=== PATIENT | female | born 1985 | race African-American/Black ===

== ENCOUNTER 2016-07-18 07:13 | Emergency (ER) | payer SELFPAY ==
[2016-07-18 08:38] LABS: ABSOLUTE EOSINOPHILS # (AUTO) 0.1 10^3/uL (0.0-0.6); ABSOLUTE LYMPHOCYTES (AUTO) 1.4 10^3/uL (0.5-4.7); ABSOLUTE MONOCYTES (AUTO) 0.5 10^3/uL (0.1-1.4); ABSOLUTE NEUT (AUTO) 3.1 10^3/uL (1.7-8.2); BASOPHILS % (AUTO) 0.9 % (0-2); EOSINOPHILS % (AUTO) 2.5 % (0-6); HEMATOCRIT 51.9 % (36.0-47.0); HEMOGLOBIN 16.8 g/dL (12.0-15.5); HGB HCT DIFFERENCE -1.5; MEAN CORPUSCULAR HEMOGLOBIN 30.8 pg (27.0-33.4); MEAN CORPUSCULAR HGB CONC 32.4 g/dL (32.0-36.0); MEAN CORPUSCULAR VOLUME 95 fl (80-97); MONOCYTES % (AUTO) 10.1 % (3-13); RED BLOOD COUNT 5.46 10^6/uL (3.72-5.28); RED CELL DISTRIBUTION WIDTH 13.9 % (11.5-14.0); SEGMENTED NEUTROPHILS % (AUTO) 59.5 % (42-78); WHITE BLOOD COUNT 5.3 10^3/uL (4.0-10.5)
[2016-07-18 08:48] LABS: APPEARANCE,URINE SLIGHTLY-CLOUDY; BILIRUBIN,URINE NEGATIVE (NEGATIVE); GLUCOSE, URINE NEGATIVE (NEGATIVE); KETONES,URINE NEGATIVE (NEGATIVE); LEUKOCYTE ESTERASE,URINE NEGATIVE (NEGATIVE); NITRITE,URINE NEGATIVE (NEGATIVE); PROTEIN,URINE NEGATIVE (NEGATIVE); URINE SPECIFIC GRAVITY 1.026
[2016-07-18 08:56] LABS: ALANINE AMINOTRANSFERASE 21 U/L (9-52); ALBUMIN 4.4 g/dL (3.5-5.0); ALKALINE PHOSPHATASE 73 U/L (38-126); ANION GAP 10 (5-19); ASPARTATE AMINO TRANSFERASE 20 U/L (14-36); BILIRUBIN,DIRECT 0.3 mg/dL (0.0-0.4); BILIRUBIN,TOTAL 1.2 mg/dL (0.2-1.3); BLOOD UREA NITROGEN 6 mg/dL (7-20); CALCIUM 9.5 mg/dL (8.4-10.2); CARBON DIOXIDE 24 mmol/L (22-30); CHLORIDE 108 mmol/L (98-107); CREATININE RESULT 0.82 mg/dL (0.52-1.25); GLUCOSE 85 mg/dL (75-110); LIPASE 137.9 U/L (23-300); POTASSIUM 3.9 mmol/L (3.6-5.0); SODIUM 141.5 mmol/L (137-145); TOTAL PROTEIN 7.6 g/dL (6.3-8.2)
[2016-07-18] MEDS ORDERED: ONDANSETRON 4 MG TAB.RAPDIS PO ONE (09:17)
--- NOTE | 2016-07-18 09:17 | ER Document Report ---
ED GI/ - General Chief Complaint: Abdominal Pain Stated Complaint: ABDOMINAL PAIN Time Seen by Provider: 07/18/16 08:52 Mode of Arrival: Ambulatory Information source: Patient Notes: Patient is a 30-year-old female who presents to the ER today for left lower Pelvic pain 3 weeks, nausea and vomiting for that amount of time also. Patient states that she has started spotting like she is going to have her menstrual cycle but that she did not end up doing any more than spotting blood, dark brown. She denies any other vaginal discharge that is abnormal for her. Her last bowel movement was yesterday and normal. She denies , stating her "tubes are tied." TRAVEL OUTSIDE OF THE [place] IN LAST 30 DAYS: No - Related Data Allergies/Adverse Reactions: No Known Allergies Allergy (Verified 07/18/16 07:23) Past Medical History - General Information source: Patient - Social History Smoking Status: Never Smoker Family History: Reviewed & Not Pertinent Patient has suicidal ideation: No Patient has homicidal ideation: No Neurological Medical History: Denies: Hx Seizures Renal/ Medical History: Denies: Hx Peritoneal Dialysis Infectious Medical History: Past Surgical History: Reports: Hx Section. Denies: Hx Hysterectomy, Hx Pacemaker - Immunizations Hx Diphtheria, Pertussis, Tetanus Vaccination: Yes Review of Systems - Review of Systems Constitutional: No symptoms reported EENT: No symptoms reported Cardiovascular: No symptoms reported Respiratory: No symptoms reported Gastrointestinal: No symptoms reported Genitourinary: No symptoms reported Female Genitourinary: See HPI Musculoskeletal: No symptoms reported Skin: No symptoms reported Hematologic/Lymphatic: No symptoms reported Neurological/Psychological: No symptoms reported Physical Exam - Vital signs Vitals: Temp Pulse Resp BP Pulse Ox 98.4 F 61 16 136/84 H 99 07/18/16 07:21 07/18/16 07:21 07/18/16 07:21 07/18/16 07:21 07/18/16 07:21 - Notes Notes: PHYSICAL EXAMINATION: GENERAL: Well-appearing and in no acute distress. HEAD: Atraumatic, normocephalic. EYES: Pupils equal round and reactive to light, extraocular movements intact, sclera anicteric, conjunctiva are normal. NECK: Normal range of motion, supple without lymphadenopathy LUNGS: CTAB and equal. No wheezes rales or rhonchi. HEART: Regular rate and rhythm without murmurs ABDOMEN: Soft, Mild left lower quadrant and suprapubic tenderness. No guarding, no rebound BACK: no vertebral tenderness, normal ROM GI/: no CVA tenderness pelvic: see procedures EXTREMITIES: Normal range of motion, no pitting edema. No cyanosis. NEUROLOGICAL: Cranial nerves grossly intact. Normal sensory/motor exams. PSYCH: Normal mood, normal affect. SKIN: Warm, Dry, normal turgor, no rashes or lesions noted Course - Re-evaluation Re-evalutation: 07/18/16 15:15 pt positive for trichomonas on wet mount. pt treated for gonorrhea and chlamydia as well as trichomonas before leaving, before gonorhhea and chlamydia results came back. US revealed ovarian cyst on left. negative. - Vital Signs Vital signs: Temp Pulse Resp BP Pulse Ox 98.2 F 54 L 16 140/85 H 98 07/18/16 11:57 07/18/16 11:57 07/18/16 11:57 07/18/16 11:57 07/18/16 11:57 - Laboratory Result Diagrams: 07/18/16 08:24 07/18/16 08:24 Laboratory results interpreted by me: 07/18/16 07/18/16 07/18/16 08:24 08:24 08:24 RBC 5.46 H Hgb 16.8 H Hct 51.9 H Chloride 108 H BUN 6 L Urine Urobilinogen 2.0 H Procedures - Pelvic Exam Pelvic exam Time completed: 11:42 Cultures obtained: Yes Wet prep obtained: Yes Bimanual exam performed: Yes - normal tenderness to exam Witnessed by: tech Discharge - Discharge Clinical Impression: Trichomonal cervicitis, Ovarian cyst Nausea & vomiting Qualifiers: Vomiting type: unspecified Vomiting Intractability: non-intractable Qualified Code(s): R11.2 - Nausea with vomiting, unspecified Condition: Stable Disposition: HOME, SELF-CARE Additional Instructions: Return immediately for any new or worsening symptoms. Follow up with [facility], call tomorrow to make followup appointment. Prescriptions: Metronidazole [Flagyl 500 mg Tablet] 500 mg PO Q6H #28 tablet Ondansetron [Zofran Odt 4 mg Tablet] 1 - 2 tab PO Q4H PRN #30 tab.rapdis PRN Reason: For Nausea/Vomiting Forms: Return to Work
--- NOTE | 2016-07-18 10:53 | RADIOLOGY REPORT (SQ) ---
EXAM DESCRIPTION: U/S NON-OB PELVIS TV W/O DOP COMPLETED DATE/TIME: 07/18/2016 10:42 am REASON FOR STUDY: llq pain, spotting COMPARISON: None. TECHNIQUE: Dynamic and static grayscale images acquired of the pelvis via transvaginal approach and recorded on PACS. Additional selected color Doppler and spectral images recorded. LIMITATIONS: None. FINDINGS: UTERUS: Contour normal. No mass. ENDOMETRIAL STRIPE: No focal or generalized thickening. No masses. CERVIX: No nabothian cysts. RIGHT OVARY: No abnormal masses. RIGHT OVARY DOPPLER: Normal arterial vascular flow without evidence for torsion. LEFT OVARY: No abnormal masses. Dominant follicle measuring 1.7 cm with relatively simple appearance. Doubtful clinical significance. LEFT OVARY DOPPLER: Normal arterial vascular flow without evidence for torsion. FREE FLUID: None noted. OTHER: Generalized vascularity along the uterus. MEASUREMENTS: UTERUS: 9.9 x 7.6 x 4.5 cm ENDOMETRIAL STRIPE: 7 mm RIGHT OVARY: 3.6 x 3.2 x 2.2 cm LEFT OVARY: 4.0 x 3.2 x 2.4 cm IMPRESSION: 1. No worrisome findings. No suspicious mass or evidence of torsion. Incidental domina nt left adnexal follicle or cyst. The appearance is simple and in a patient of this age of doubtful clinical significance even in light of some left lower quadrant pain. Note is also made of prominent vascularity along the uterus. This can be seen with pelvic vascular congestion syndrome. TECHNICAL DOCUMENTATION: JOB ID: [id number] [employer]- All Rights Reserved
[2016-07-18 11:58] VITALS: BP 140/85
[2016-07-18] MEDS ORDERED: CEFTRIAXONE INJ 250 MG VIAL IM ONE (12:11)
[2016-07-18] MEDS ORDERED: METRONIDAZOLE 500 MG TABLET PO ONE (12:11)
[2016-07-18] MEDS ORDERED: LIDOCAINE 1% INJ-PF (10 MG/ML) 30 ML SDV INJ ONE (12:11)
[2016-07-18] MEDS ORDERED: AZITHROMYCIN 250 MG TABLET PO ONE (12:13)
[2016-07-18 13:05] LABS: CHLAM PCR NOT DETECTED (NOT DETECT)
== END 2016-07-18 12:43 | disposition home or self-care (01) ==
LOC: ER 07:13
DX: A59.09 Other urogenital trichomoniasis (principal); N83.202 Unspecified ovarian cyst, left side; R11.2 Nausea with vomiting, unspecified; R10.2 Pelvic and perineal pain
CPT/HCPCS: 99284; 96372; 36415; 87210; 83690; 85025; 81025; 80053; 81001; 87491; 87591; 76830; S0119; J3490; J0696